=== PATIENT | female | born 1995 | race Two or more races ===

== ENCOUNTER 2021-01-27 13:45 | Inpatient (IN) | payer OTHER ==
[~2021-01-27] VITALS: Ht 152.4 cm; Wt 71.7 kg
[2021-01-27] MEDS ORDERED: PRENATAL + DHA1 EAC1 (14:57)
== END 2021-01-29 17:02 | disposition home or self-care (01) | DRG 807 ==
LOC: OBS/DEL 13:45 → OB/GYN 16:04 → LDR 16:04 → OB/GYN 19:02
PROVIDERS: ADMIT Specialist; ATTEND Specialist
PROC: 10E0XZZ Delivery of Products of Conception, External Approach (ICD-10-PCS; principal; 2021-01-27)
PROC: 0KQM0ZZ Repair Perineum Muscle, Open Approach (ICD-10-PCS; 2021-01-27)
PROC: 4A1HXFZ Monitoring of Products of Conception, Cardiac Rhythm, External Approach (ICD-10-PCS; 2021-01-27)
DX: O70.1 Second degree perineal laceration during delivery (principal); Z37.0 Single live birth; Z3A.40 40 weeks gestation of pregnancy